=== PATIENT | male | born 1950 ===

== ENCOUNTER → 2024-12-30 10:44 | Outpatient (CLI) | payer MEDICARE, OTHER, SELFPAY ==
--- NOTE | 2024-12-30 10:54 | DI.RAD.S_ITS ---
PROCEDURE: XR KNEE 2V WB RIGHT INDICATIONS: Right Knee Pain - PA Bilateral WB, Lateral, [place] TECHNIQUE: 4 views of the knee were acquired. COMPARISON: [facility] JOSE MANUEL Sparks, XR KNEE 4+ VIEWS RIGHT, 01/05/2024, 14:36. FINDINGS: Bones: No fractures or dislocations. No suspicious bony lesions. There is moderate bilateral medial compartment narrowing relatively stable compared to prior exam. Fdqz-dw-lhbhphyr lateral compartment narrowing, right greater than left is present. Dpbm-et-blbbhlbl right patellofemoral compartment narrowing relatively stable. Minimal appearance of periarticular osteophytes. No erosions. Chondrocalcinosis is present. Soft tissues: Moderate joint effusion. No suspicious soft tissue calcifications. IMPRESSION: Tricompartmental arthritic changes most severe medially as above. Dictated by: Asha Romeo M.D. on 12/30/2024 at 16:01 Approved by: Asha Romeo M.D. on 12/30/2024 at 16:02
== END ==
PROVIDERS: PCP Family Medicine; Referring Provider Orthopaedic Surgery Adult Reconstructive Orthopaedic Surgery; Visit Provider Orthopaedic Surgery Adult Reconstructive Orthopaedic Surgery
DX: M11.261 Other chondrocalcinosis, right knee (principal); M25.561 Pain in right knee; M25.461 Effusion, right knee
CPT/HCPCS: 36415; 73560; 80048; 82040; 82306; 83036; 84134; 85025; 93005; 93010

== ENCOUNTER → 2024-12-30 14:22 | Outpatient (CLI) | payer MEDICARE, OTHER, SELFPAY ==
--- NOTE | 2024-12-30 14:30 | EKG_ITS ---
[facility] [address] [place] [address] Test Date: 2024-12-30 Pat Name: Domenic Manuel Department: [facility] Room: Gender: Male Heel Emery Buffer: : 1950 Requested By: Order Number: [id number] Reading MD: Sherif Mccullough MD Measurements Intervals [place] Rate: 55 P: 18 OK: 254 QRS: -25 QRSD: 92 T: 40 QT: 390 QTc: 373 Interpretive Statements Sinus bradycardia with 1st degree AV block Electronically Signed On 12-30-2024 15:04:52 PDT by Sherif Mccullough MD
[2024-12-30 16:04] LABS: Add Manual Diff / Slide Review NO; Basophils Absolute Auto 0 /uL (0-100); Basophils Percent Auto 0.6 % (0-2); Eosinophils Absolute Auto 100 /uL (0-450); Eosinophils Percent Auto 1.1 % (2-4); Hematocrit 38.7 % (41-53); Hemoglobin 13.6 g/dL (13.5-17.5); Lymphocytes Absolute Auto 1600 /uL (1100-4500); Lymphocytes Percent Auto 27.9 % (25-40); Mean Corpuscular HGB Conc 35.2 % (30-36); Mean Corpuscular Hemoglobin 31.7 PG (26-34); Mean Corpuscular Volume 90.2 fL (80-100); Monocytes Absolute Auto 400 /uL (0-900); Monocytes Percent Auto 7.2 % (3-14); Neutrophils Absolute Auto 3600 /uL (1500-7000); Neutrophils Percent Auto 63.2 % (50-75); Platelet Count 187 X10^3/uL (150-400); Red Cell Distribution Width 13.8 % (11.6-14.8); White Blood Cell Count 5.6 X10^3/uL (4.5-11.0)
[2024-12-30 16:28] LABS: Albumin 4.3 g/dL (3.5-5.0); BUN Creatinine Ratio 26.3 (6-22); Blood Urea Nitrogen 21 mg/dL (9-20); Calcium 9.6 mg/dL (8.4-10.2); Carbon Dioxide 27 mmol/L (22-32); Chloride 107 mmol/L (98-107); Estimated Glomerular Filt Rate > 60 mL/min (>60); Glucose 90 mg/dL (70-99); HEMOLYSIS < 15 (0-50); Potassium 4.6 mmol/L (3.4-5.1); Sodium 138 mmol/L (137-145)
[2024-12-30 16:39] LABS: Prealbumin 28.6 mg/dL (17.6-36.0)
[2024-12-30 16:43] LABS: Vitamin D 25 Hydroxy (D3) 100 ng/mL (30.0-100.0)
== END ==
PROVIDERS: PCP Family Medicine; Referring Provider Orthopaedic Surgery Adult Reconstructive Orthopaedic Surgery; Visit Provider Orthopaedic Surgery Adult Reconstructive Orthopaedic Surgery
DX: Z01.818 Encounter for other preprocedural examination (principal); Z78.9 Other specified health status; M17.11 Unilateral primary osteoarthritis, right knee
CPT/HCPCS: 36415; 80048; 82040; 82306; 83036; 84134; 85025; 93005

== ENCOUNTER 2025-02-28 06:03 | Day surgery (SDC) | payer MEDICARE, OTHER, SELFPAY ==
[2025-02-18 09:17] VITALS: BMI 29.2
[2025-02-28] VITALS (10 sets, daily range): BP systolic 122–167; BP diastolic 77–100; PULSE 68–99; RESP 12–20; TEMP 36.2–36.8; O2SAT 96–100; BMI 29.5
[2025-02-28] MEDS: ACETAMINOPHEN 325 MG TABLET 975 MG PO ×2 (06:48→13:21)
[2025-02-28] MEDS: LACTATED RINGERS 1,000 ML 42 ML IV ×2 (06:48→09:01)
--- NOTE | 2025-02-28 07:45 | PM.PREOP ---
Pre-operative Note Interval Note History & Physical reviewed/Exam performed by Physician: Yes Changes to H&P: No
--- NOTE | 2025-02-28 07:51 | DI.RAD.S_ITS ---
PROCEDURE: XR KNEE RT 2V INDICATIONS: Total knee arthroplasty TECHNIQUE: 2 views of the right knee acquired. COMPARISON: None. FINDINGS: Bones: Patient is status post knee joint arthroplasty. Expected postoperative changes with soft tissue gas. No radiographic evidence of periprosthetic fracture or high attenuation surgical instrument or foreign body. IMPRESSION: Expected post-operative appearance of a knee arthroplasty. Dictated by: Manuel Badillo M.D. on 02/28/2025 at 11:28 Approved by: Manuel Badillo M.D. on 02/28/2025 at 11:42
[2025-02-28] MEDS: CEFAZOLIN 2 GM/100 ML PREMIX 100 ML IV (08:09)
[2025-02-28] MEDS: TRANEXAMIC ACID 1,000 MG VIAL 1000 MG INJ ×2 (08:12→10:05)
--- NOTE | 2025-02-28 08:34 | SUR.OPER ---
Supine on padded OR bed. Pillow under head, arms secured on padded armboards <90 degree abduction. Safety belt across torso. Non-operative leg secured with tape over blanket over lower leg. Operative leg secured in DeMayo/Marquise/Nathe positioner. Foam padded brace at thigh of operative leg.
[2025-02-28] MEDS: BUPIVACAINE 0.5% W/ EPI (PF) 30 ML VIAL 60 ML INJ (08:39)
[2025-02-28] MEDS: KETOROLAC 30 MG/ML VIAL 15 MG IV (08:40)
--- NOTE | 2025-02-28 10:00 | P.OP_ITS ---
Operative Date/Time/Diagnoses Date of procedure: 02/28/25 Time of procedure: 07:45 Pre-op diagnosis: Right knee osteoarthritis Post-op diagnosis: same Procedure & Clinicians Procedure: Right total knee arthroplasty Same procedure(s) as scheduled: Yes Surgeon: Carmine Henry Mechanical Cad Designer: Renetta Romeo Anesthesia Type: Spinal, Sedation and Local Operative Notes Findings: Severe right knee arthritis Applied: implant(s) Estimated Blood Loss (mL): 450 Procedure in detail: Right Gap-Balanced Chris Persona Medial-Congruent Primary Total Knee Arthroplasty Implants: * Size 9 Cruciate Retaining Femoral Component * Size G Tibial Component * Size 12 Medial Congruent Polyethylene Insert * Unresurfaced Patella Procedure Summary: This 74-year-old male patient had varus knee arthritis. Attempting to balanced his extension gap I initially performed a varus resection on the tibia however I found that he had significant medial sided laxity when I did this. I corrected this by performing a recut on the tibia which resulted in mechanical axis alignment. This resolved his extension gap asymmetry. It did result in more tension being necessary to open the extension gap, as it opened to 12 mm with 40 lb of pressure. This was matched in flexion where his flexion gap balanced with 0? of external rotation. I ensured that this had appropriate gap symmetry in flexion before moving on with 4 in 1 cuts. Given that 40 lb of pressure was able to open the knee to 12 mm in extension I expected to use a larger polyethylene insert and initially trialed with a 14 mm insert. This was very tight and difficult to get to fit into the knee and did not allow the knee to fully extend. I initially downsize to a 13 mm Arden and eventually to a 12 mm Arden which resulted in full knee extension and still maintained good tension in flexion so a 12 mm insert was used. Uncemented components were used given his very high bone quality and a tourniquet was not inflated given my anticipation of not using cement. This did result in larger blood loss for the procedure, estimated at 450. Procedure in Detail: This patient was seen preoperatively and evaluated for knee pain which was refractory to numerous nonoperative treatment modalities. Their pain correlated with radiographic changes demonstrating significant degeneration in the knee joint. The risks and benefits of continued nonoperative management versus operative management were discussed at length and all of the patient?s questions were answered. Additional educational materials providing further details beyond our discussion in clinic were provided via a publicly available patient education video which included the incidence of medical complications associated with total knee arthroplasty, reasons for revision following total knee arthroplasty, and patient satisfaction rates following total knee arthroplasty. With this understanding of the risks inherent to the procedure, the patient elected to move forward with operative management. Following preoperative optimization, the patient was scheduled for surgery. The patient was met in the preoperative holding area the day of the procedure and all questions were answered. The patient?s nares were swabbed in order to decolonize them from MRSA. Informed consent was signed and the right limb was marked with indelible ink.? The patient was brought back to the operating room where anesthesia was induced. The patient was transferred to the operating table and all bony prominences were padded. The operative site was prepped and draped in the usual sterile fashion. A second prep stick was utilized following drape placement. The incision was marked corresponding to the medial aspect of the tibial tubercle and the patella. Ioban was wrapped circumferentially around the knee. Prior to incision, tranexamic acid and cefazolin were administered. Templating images were displayed. A timeout procedure was performed verifying the patient?s identity, medical comorbidities, allergies, relevant medications, anesthesia type and the surgical plan. All present were in agreement. The assistance of a physician recreational assistant was required for positioning, room setup, soft tissue retraction and wound closure. Without this assistance, the procedure would have been significantly more challenging and time consuming.?? The tourniquet was not inflated prior to incision. I made an anterior incision over the knee, dissected through the subcutaneous tissues and identified the lateral border of the VMO. Medial and lateral soft tissue flaps were developed. A mid-vastus arthrotomy was performed ensuring that adequate capsular tissue would remain for closure at the conclusion of the procedure. The knee was brought into extension and the medial soft tissues were released off the joint line of the tibia. Tissue overlying the distal anterior femur was released to a llow for later assessment for anterior notching but left in place. A portion of the retropatellar fat pad was excised while protecting the patellar tendon. The patella was everted. The patella was not resurfaced. Osteophytes were excised and a lateral facetectomy was performed. The patella was released from its everted position.?? I flexed the knee to 90 degrees and placed retractors to allow access to the notch. An opening reamer was used to gain access to the femoral canal and an intramedullary rima was introduced into the canal. Diaphyseal fit was obtained in order to plan a distal femoral resection at 5 degrees relative to the anatomic axis. A +1 resection was planned and assessed using an jeremy wing. I then made the cut using a sagittal saw. This provided additional access to the femoral notch. The ACL and PCL were excised. Retractors were placed on the lateral and medial tibia. I hyperflexed the knee while externally rotating it to sublux the tibia anteriorly. I placed a Anastacio retractor posteriorly and used this to provide additional anterior subluxation. The remainder of the PCL root was released. An extramedullary guide was positioned for a resection in slight varus. I initially made this cut and assess gap balanced. At that point in time I found that there was significant medial sided laxity. The overall limb alignment was obviously varus but appeared for him to have been excessive varus. I therefore repositioned the extramedullary guide and planned a new tibial resection which would be in mechanical axis alignment. A resection which would be a skim cut off of the previously resected medial side was planned and the tibial cutting jig was pinned in place. I evaluated the depth, varus-valgus alignment and slope of the planned tibial resection prior to making the cut. I cut the tibia with a sagittal saw while using retractors to protect the MCL, patellar tendon, and posterolateral structures.? The knee was repositioned in extension and the Fuzion soft tissue balancing gauge was introduced. This demonstrated that there was equal tension in the medial and lateral compartments of the knee with the knee in full extension and no additional soft tissue releases were necessary. When 40 pounds of force was applied to the Fuzion device, the extension gap opened to 12 mm. I moved the knee into 90 degrees of flexion, and the Fuzion device was recalibrated by removing a 9 mm arden to allow assessment of the flexion gap. The Fuzion block was placed perpendicular to the resected surface of the tibia and the resected surface of the distal femur. Forty pounds of traction was applied to match the tension of the extension gap. This externally rotated the femur to 0 degrees. Pins were placed in the 12 mm holes. Appropriate sizing was determined and a 4-in-1 block was placed. This was double checked using the Fuzion device to ensure that it would open to an equal distance as the extension gap when the same amount of force was applied. The Fuzion block was also used to assess flexion gap symmetry. An jeremy wing was used to ensure there would be no anterior notching. Retractors were placed to protect the soft tissues during resection. Captured cuts were performed with a sagittal saw for the anterior and posterior femur as well as the corresponding chamfers.?A laminar activated sludge attendant and retractors were used to expose the posterior knee and the menisci and posterior osteophytes were removed. Trial components were placed and the construct was assessed. Range of motion was assessed by ensuring the knee could achieve full extension and assessing maximum passive knee flexion by elevating the femur and allowing the heel to passively fall towards the buttock. Gap symmetry was assessed by stressing the medial and lateral compartments in both extension and flexion. Laxity was assessed in both extension and flexion and the polyethylene trial was adjusted with shims as necessary. Patellar tracking was assessed with knee flexion. Once satisfied with the construct, I moved forward with implant insertion. Lug holes were drilled in the femur and the tibia was prepped ensuring appropriate sizing and rotation relative to the tibial tubercle.?? The bony ends were irrigated. A portion of the anterior chamfer cut was utilized as a to plug the hole from the intramedullary rima in the femur. I impacted the tibial component into place. The tibia was reduced underneath the femur. I placed the femoral component. I brought the knee into extension and manually pressurized the construct by pushing on the heel. The knee was bathed in a dilute mixture of betadine and peroxide. A mixture of Ropivacaine, Epinephrine and Toradol was infiltrated throughout the soft tissues into structures including the VMO, patellar tendon, quadriceps tendon, MCL and femoral periosteum. The knee was copiously irrigated with pulse lavage. The knee was again trialed. Range of motion was assessed by ensuring the knee could achieve full extension and assessing maximum passive knee flexion by elevating the femur and allowing the heel to passively fall towards the buttock. Gap symmetry was assessed by stressing the medial and lateral compartments in both extension and flexion. Laxity was assessed in both extension and flexion and the polyethylene trial was adjusted with shims as necessary. Patellar tracking was assessed with knee flexion. The tourniquet was let down and the polyethylene trial was removed. I inspected the knee inspected for excess cement and any residual bleeding. Once hemostasis was achieved I inserted the final polyethylene and ensured appropriate engagement of the dovetail locking mechanism.?? The arthrotomy was closed with non-absorbable interrupted suture ensuring that this extended to the top of the arthrotomy. This was backed up with running barbed suture throughout the arthrotomy. The skin was closed with 2-0 and 3-0 sutures. Surgical glue was applied and a soft dressing was placed.?The sponge, instrument and needle counts were reported as being correct at the end of the case. The patient was transferred from the operating table back to a stretcher. The patient emerged from anesthesia without difficulty and was taken to the PACU in a stable condition.? Plan for aftercare: * Weightbearing as tolerated * Aspirin 81 twice per day for DVT prophylaxis * Multimodal pain regimen with no IV opioids ordered * Anticipate discharge home later today * Follow up at [facility] in 2 weeks for wound check Complications: none
[2025-02-28] MEDS: OXYCODONE IR 5 MG TABLET PO ×2 (10:43→11:41)
[2025-02-28] MEDS: MELOXICAM 7.5 MG TABLET 15 MG PO (10:43)
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
== END 2025-02-28 13:57 | disposition home or self-care (01) ==
PROVIDERS: PCP Family Medicine; Referring Provider Orthopaedic Surgery Adult Reconstructive Orthopaedic Surgery; Visit Provider Orthopaedic Surgery Adult Reconstructive Orthopaedic Surgery
PROC: 0SRC0JZ Replacement of Right Knee Joint with Synthetic Substitute, Open Approach (ICD-10-PCS; CPT 27447; principal; 2025-02-28 07:45)
DX: M17.11 Unilateral primary osteoarthritis, right knee (principal); I10 Essential (primary) hypertension; K21.9 Gastro-esophageal reflux disease without esophagitis; E11.9 Type 2 diabetes mellitus without complications; Z79.84 Long term (current) use of oral hypoglycemic drugs
CPT/HCPCS: 27447; 73560; 82962; 97161; 97535; C1776; C1713; J0690; J1100; J1885; J2405; J2704; J3010